=== PATIENT | male | born 1960 | race Caucasian/White ===

== ENCOUNTER → 2021-07-20 | Outpatient (CLI) | payer OTHER ==
--- NOTE | 2021-07-20 09:32 | KCIC ---
EXAM: CT CORONARY CALCIUM SCORING. HISTORY: Coronary risk factors. Calcium scoring is requested. COMPARISON: None. FINDINGS: Limited noncontrast CT of the chest was performed for coronary calcium scoring. Refer to e worksheets for full detail. *One or more of the following individualized dose reduction techniques were utilized for this examination: 1. Automated exposure control. 2. Adjustment of the mA and/or kV according to patient size. 3. Use of iterative reconstruction technique. Coronary calcium scoring is as follows: LMA: 0. LAD: 0. LCX: 0. RCA: 0. PDA: 0. Total: 0. This places the patient at the 0th percentile in age- and sex-matched subjects. The included portions of the chest reveal the following. Bone windows reveal no suspicious lesions. I mages of the upper abdomen reveal no acute abnormality. There are no pathologically enlarged mediastinal lymph nodes. There is no pleural or pericardial effu linda. The heart is not enlarged. A 4 mm nodule along the left major fissure on image 13 is consistent with a benign intrafissural lymp h node. IMPRESSION: 1. Coronary calcium score 0. Electronically signed by: Katia Vincent MD (07/20/2021 9:30 AM) [id number]
== END ==
LOC: KCIC CT 08:53
PROVIDERS: ATTEND Family Medicine
DX: E78.00 Pure hypercholesterolemia, unspecified (principal); R91.1 Solitary pulmonary nodule
CPT/HCPCS: 75571